=== PATIENT | female | born 2000 | race Two or more races ===

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

== ENCOUNTER 2020-04-23 07:47 | Emergency (ER) | payer OTHER ==
--- NOTE | 2020-04-23 07:52 | ED Physician Documentation ---
PD HPI HEENT - Stated complaint Stated Complaint: RT EAR CLOG FEELING - History obtained from History obtained from: Patient - History of Present Illness Timing - onset: How many months ago (several months) Timing - duration: Months (has had feeling of pressure and less hearing right ear since URI in Nov, but has worse feeling of pressure there the past week. Tried cleaning out ear with water. Denies drainage. Denies sinus pressure, sore throat, runny nose.) Timing - details: Gradual onset, Still present, Waxing and waning Location: Right ear Worsens: Position Associated symptoms: No: Fever, Congestion, Facial swelling, Headache, Cough Similar symptoms before: Has not had sx before Recently seen: Not recently seen Review of Systems Constitutional: denies: Fever, Chills Ears: reports: Loss of hearing (just right ear), Ear pain. denies: Drainage/discharge, Tinnitus/ringing Nose: denies: Rhinorrhea / runny nose, Congestion Throat: denies: Sore throat Respiratory: denies: Cough GI: denies: Nausea, Vomiting, Diarrhea Skin: denies: Rash, Lesions Neurologic: denies: Headache PD PAST MEDICAL HISTORY - Past Medical History Cardiovascular: None Respiratory: None Endocrine/Autoimmune: None GI: None - Past Surgical History Past Surgical History: No - Present Medications Home Medications: Ambulatory Orders Medication Instructions Recorded Confirmed Amoxicillin 500 mg PO TID #15 capsule 04/23/20 Cetirizine [ZyrTEC] 10 mg PO DAILY #15 tablet 04/23/20 dexAMETHasone [Decadron] 4 mg PO DAILY #5 tablet 04/23/20 - Allergies Allergies/Adverse Reactions: Allergies Allergy/AdvReac Type Severity Reaction Status Date / Time No Known Drug Allergies Allergy Verified 04/23/20 08:02 - Social History Does the pt smoke?: No Smoking Status: Never smoker Does the pt drink ETOH?: No Does the pt have substance abuse?: No - Immunizations Immunizations are current?: Yes PD ED PE NORMAL - Vitals Vital signs reviewed: Yes - General General: Alert and oriented X 3, No acute distress, Well developed/nourished - HEENT HEENT: PERRL, EOMI, Moist mucous membranes, Pharynx benign. No: Ears normal (left is normal. right ear with normal and clear canal. TM with some fluid behind it. Not red. ) - Neck Neck: Supple, no meningeal sign, No adenopathy - Cardiac Cardiac: RRR, No murmur - Respiratory Respiratory: Clear bilaterally - Derm Derm: Normal color, Warm and dry, No rash Results - Vitals Vitals: Vital Signs - 24 hr 04/23/20 07:58 Temperature 37 C Heart Rate 89 Respiratory 16 Rate Blood Pressure 146/84 H O2 Saturation 99 Oxygen O2 Source Room air PD MEDICAL DECISION MAKING - ED course Complexity details: considered differential (long duration of right ear pressure/less hearing. But no sinus symptoms. exam just with some fluid behind ear. Wonder if there is clogging more of the sinus/eustachian tube. Since not much allergy symptoms, could also consider polyp or such mechanically blocking drainage.), d/w patient Departure - Departure Disposition: 01 Home, Self Care Clinical Impression: Eustachian tube dysfunction Qualifiers: Laterality: right Qualified Code(s): H69.81 - Other specified disorders of Eus tachian tube, right ear Hypoacusis Qualifiers: Hearing loss type: unspecified Laterality: right Qualified Code(s): H91.91 - Unspecified hearing loss, right ear Condition: Stable Record reviewed to determine appropriate education?: Yes Instructions: ED Otitis Media Serous Adult Follow-Up: MARLEEN SCHULTZ MD [Primary Care Provider] - [facility] [Provider Group] Prescriptions: Amoxicillin 500 mg PO TID #15 capsule dexAMETHasone [Decadron] 4 mg PO DAILY #5 tablet Cetirizine [ZyrTEC] 10 mg PO DAILY #15 tablet Comments: The ear canal and eardrum appeared normal with just some fluid behind the eardrum. There is potential there may be some infection down more in the eustachian tube or the sinuses. Alternatively there could be some structural clogging of the eustachian tube such as a cyst or such. We can try treating it for the fluid collection in the middle ear with Decadron steroid and cetirizine antihistamine. We can also trial a short course of antibiotics and see if the combination helps. If not improved with these medications, then follow-up with your primary care or more appropriately ENT specialist for further assessment of alternate treatments. Discharge Date/Time: 04/23/20 08:21
[2020-04-23 08:02] VITALS: BP 146/84
[2020-04-23] MEDS ORDERED: CETIRIZINE 10 MG TABLET PO STA (08:06)
[2020-04-23] MEDS ORDERED: CHERRY SYRUP 10 ML UDC PO ONE (08:06)
[2020-04-23] MEDS ORDERED: DEXAMETHASONE 10 MG/ML VIAL PO STA (08:06)
== END 2020-04-23 08:21 | disposition home or self-care (01) ==
LOC: ED 07:47
DX: H69.81 Other specified disorders of Eustachian tube, right ear (principal); H91.91 Unspecified hearing loss, right ear
CPT/HCPCS: 99283; 99284; A9270

== ENCOUNTER 2020-12-18 21:23 | Emergency (ER) | payer OTHER ==
--- NOTE | 2020-12-18 22:06 | ED Physician Documentation ---
PD HPI SKIN - Stated complaint Stated Complaint: LUMP IN NOSE - Chief complaint Chief Complaint: Wound - History obtained from History obtained from: Patient - History of Present Illness Timing - onset: How many days ago (3) Timing - details: Gradual onset, Constant Location: Other (left nare) Quality / character: Painful, Raised, Swelling Associated symptoms: No: Fever Similar symptoms before: Has not had sx before Recently seen: Not recently seen - Additional information Additional information: c/o tender swelling left nare, gradual onset 3 days ago and steadily worsening in size. Denies h/o similar symptoms Review of Systems Constitutional: denies: Fever Skin: denies: Rash PD PAST MEDICAL HISTORY - Past Medical History Past Medical History: No Cardiovascular: None Respiratory: None Endocrine/Autoimmune: None GI: None - Past Surgical History Past Surgical History: No - Present Medications Home Medications: Ambulatory Orders Medication Instructions Recorded Confirmed Doxycycline Hyclate [Vibramycin] 100 mg PO BID #14 12/18/20 Norgestimate-Ethinyl Estradiol 1 each PO DAILY 12/18/20 12/18/20 [Previfem Tablet] - Allergies Allergies/Adverse Reactions: Allergies Allergy/AdvReac Type Severity Reaction Status Date / Time No Known Drug Allergies Allergy Verified 12/18/20 21:51 - Social History Does the pt smoke?: No Smoking Status: Never smoker Does the pt drink ETOH?: Yes Does the pt have substance abuse?: No - Immunizations Immunizations are current?: Yes - POLST Patient has POLST: No PD ED PE NORMAL - Vitals Vital signs reviewed: Yes - General General: Alert and oriented X 3, No acute distress, Well developed/nourished PD ED PE EXPANDED - HEENT HEENT Visual: 1 - rash (trace erythema), swelling (firm nodule 0.5 cm diameter without discharge or fluctuance), tenderness (mild TTP without fluctuance) Results - Vitals Vitals: Vital Signs - 24 hr 12/18/20 12/18/20 21:25 22:41 Temperature 36.2 C L 37.1 C Heart Rate 72 73 Respiratory 16 12 Rate Blood Pressure 135/81 H 124/64 O2 Saturation 100 100 Oxygen O2 Source Room air PD MEDICAL DECISION MAKING - ED course Complexity details: considered differential, d/w patient ED course: exam is suggestive of small, focal abscess at entrance of left nare. it is too small to benefit from I+D at this time, will likely respond to PO antibiotics but patient encouraged to f/u with PMD in 3-4 days if not improving and to return if worse Departure - Departure Disposition: 01 Home, Self Care Clinical Impression: Facial abscess Condition: Good Instructions: ED Staph Infec Abx Tx Only Follow-Up: MABLE LAW NP [Primary Care Provider] - Prescriptions: Doxycycline Hyclate [Vibramycin] 100 mg PO BID #14 Discharge Date/Time: 12/18/20 22:42
[2020-12-18] MEDS ORDERED: DOXYCYCLINE 100 MG TABLET PO STA (22:31)
[2020-12-18 22:42] VITALS: BP 124/64
== END 2020-12-18 22:42 | disposition home or self-care (01) ==
LOC: ED 21:23
DX: J34.0 Abscess, furuncle and carbuncle of nose (principal)
CPT/HCPCS: 99282; 99283; A9270